=== PATIENT | female | born 1940 | race Caucasian/White ===

== ENCOUNTER 2024-07-21 18:13 | Emergency (ER) | payer OTHER ==
[~2024-07-21] VITALS: Ht 167.6 cm; Wt 68.0 kg
[2024-07-21 19:40] LABS: BASOPHILS # (AUTO) 0.1 K/uL (0.0-0.2); BASOPHILS % (AUTO) 0.4 % (0.0-2.0); HEMATOCRIT 42 % (33-45); HEMOGLOBIN 13.9 g/dL (11.5-14.8); LYMPHOCYTES # (AUTO) 0.3 K/uL (0.8-4.8); LYMPHOCYTES % (AUTO) 1.8 % (20.0-44.0); MEAN CORPUSCULAR HEMOGLOBIN 31 PG (26.0-33.0); MEAN CORPUSCULAR HGB CONC 33 g/dl (31.0-36.0); MEAN CORPUSCULAR VOLUME 93 fL (82-100); MONOCYTES # (AUTO) 0.4 K/uL (0.1-1.30); MONOCYTES % (AUTO) 1.9 % (2.0-12.0); NEUTROPHILS % (AUTO) 95.9 % (43.0-81.0); PLATELET COUNT (AUTO) 266 K/uL (150-450); RED BLOOD CELL COUNT(AUTO) 4.56 MIL/uL (4.0-5.2); RED CELL DISTRIBUTION WIDTH 14.8 % (11.5-15.0); WHITE BLOOD COUNT (AUTO) 18.8 K/uL (4.3-11.0)
[2024-07-21] MEDS ORDERED: VANCOMYCIN 1 GM /D5W 250 ML PB IV ONE (20:06)
[2024-07-21] MEDS ORDERED: CEFEPIME 1 GM VIAL ONE (20:06)
[2024-07-21 20:08] LABS: CARBON DIOXIDE 25 mmol/L (21-32); CHLORIDE 102 mmol/L (98-107); CREATININE 0.6 mg/dL (0.6-1.3); GLUCOSE 163 mg/dL (74-106); POTASSIUM 3.8 mmol/L (3.5-5.1); SODIUM SERUM 135 mmol/L (136-145); UREA NITROGEN, BLOOD 18 mg/dL (7-18)
[2024-07-21] MEDS: FUROSEMIDE 20 MG/2 ML VIAL IV ONE (20:09)
[2024-07-21] MEDS: CEFEPIME 1 GM in IV D5W 50 ML IV ONE (20:09)
[2024-07-21 20:27] LABS: NT-PRO BNP 376 pg/mL (0-125)
[2024-07-21] MEDS: VANCOMYCIN 1 GM in IV D5W 250 ML IV ONE (20:42)
[2024-07-21 22:10] VITALS: BP 127/61; TEMP 98.3; O2SAT 98
[2024-07-21 22:31] LABS: APPEARANCE,URINE CLEAR (CLEAR); BILIRUBIN,URINE NEGATIVE (NEGATIVE); BLOOD, URINE NEGATIVE Ery/uL (NEGATIVE); COLOR,URINE YELLOW (YELLOW); KETONES,URINE TRACE mg/dL (NEGATIVE); LEUKOCYTE ESTERASE ,URINE NEGATIVE (NEGATIVE); NITRITE, URINE NEGATIVE (NEGATIVE); PROTEIN,URINE NEGATIVE (NEGATIVE); UGLUCOSE NEGATIVE (NEGATIVE); UROBILINOGEN,URINE 0.2 EU/dL (0.2)
[2024-07-21 23:10] LABS: ADD URINE CULTURE NO; BACTERIA,URINE Rare /HPF (None Seen); RBC,URINE 0-2 /HPF (0-2); SQUAMOUS EPITHELIAL CELL,UR Few /HPF (None Seen); WBC,URINE 0-2 /HPF (0-3)
== END 2024-07-21 22:52 | disposition short-term general hospital (02) ==
LOC: ER 18:53
DX: I50.9 Heart failure, unspecified (principal); L03.116 Cellulitis of left lower limb; R07.9 Chest pain, unspecified; R06.02 Shortness of breath; J45.909 Unspecified asthma, uncomplicated; Z60.2 Problems related to living alone
CPT/HCPCS: 99285; 93970; 96365; 71045; 96367; 96375; 93005; 85025; 80048; 87040; 87086; 83605; 81001; 36415; 84484 ×2; 83880; J1940; J3370; J7060; A4223; J0692